=== PATIENT | male | born 1990 | race African-American/Black ===

== ENCOUNTER 2017-07-16 20:11 | Emergency (ER) | payer OTHER ==
[~2017-07-16] VITALS: Ht 170.2 cm; Wt 92.0 kg
[2017-07-16 22:04] LABS: INFLUENZA A VIRAL ANTIGEN NEGATIVE; INFLUENZA B VIRAL ANTIGEN NEGATIVE
[2017-07-16 22:34] LABS: HEMATOCRIT 48.9 % (38.0-50.0); MCH 28.4 PG (29.0-34.0); MCHC 34.2 G/DL (30.0-36.0); MCV 83.2 FL (86-99); MEAN PLAT.VOLUME 10.7 uM^3 (9.0-12.4); PLATELET COUNT 194 K/uL (156-360); RBC DIS.WIDTH-CV 14.7 % (11.8-14.6); RBC DIS.WIDTH-SD 44.2 % (39-53); RED BLOOD COUNT 5.88 M/uL (4.00-5.50); WHITE BLOOD COUNT 9.3 K/uL (4.1-10.2)
[2017-07-16 22:41] LABS: CHLORIDE 100 mEq/L (99-109); POTASSIUM 3.7 mEq/L (3.7-5.4); SODIUM 135 mEq/L (136-147)
[2017-07-16 22:44] LABS: GLUCOSE 99 mg/dL (70-99)
[2017-07-16 22:45] LABS: ANION GAP 10 MEQ/L (2-14)
[2017-07-16 22:46] LABS: TOTAL BILIRUBIN 0.8 mg/dL (0.0-1.0)
[2017-07-16 22:47] LABS: ALKALINE PHOSPHATASE 88 IU/L (3-129); GFR ESTIMATE (CALCULATED) > 59 mL/min/
[2017-07-16 22:48] LABS: UREA NITROGEN (BUN) 13 mg/dL (9-23)
[2017-07-16 23:39] VITALS: BP 127/70
== END 2017-07-16 23:40 | disposition home or self-care (01) ==
LOC: EME 20:11 → EXP 20:11
PROVIDERS: Physician Assistant
DX: J02.0 Streptococcal pharyngitis (principal); R50.9 Fever, unspecified; R59.0 Localized enlarged lymph nodes; J45.909 Unspecified asthma, uncomplicated; F17.200 Nicotine dependence, unspecified, uncomplicated
CPT/HCPCS: 71020; 76881; 80053; 85027; 87502; 87651 90; 99281; 99284; J0561; J1885

== ENCOUNTER 2018-03-31 23:14 | Emergency (ER) | payer OTHER ==
[~2018-03-31] VITALS: Ht 170.2 cm; Wt 90.9 kg
[2018-04-01] MEDS ORDERED: CLINDAMYCIN HC150 MG PO (02:05)
[2018-04-01 02:29] VITALS: BP 111/75
== END 2018-04-01 02:32 | disposition home or self-care (01) ==
LOC: EME 23:14
PROC: 0HQMXZZ Repair Right Foot Skin, External Approach (ICD-10-PCS; principal; 2018-03-31)
DX: S91.011A Laceration without foreign body, right ankle, initial encounter (principal); V86.56XA Driver of dirt bike or motor/cross bike injured in nontraffic accident, initial encounter; J45.909 Unspecified asthma, uncomplicated; F17.200 Nicotine dependence, unspecified, uncomplicated
CPT/HCPCS: 73610; 99281; 99284

== ENCOUNTER 2018-06-09 20:05 | Emergency (ER) | payer OTHER ==
[~2018-06-09] VITALS: Ht 170.2 cm; Wt 91.9 kg
[~2018-06-09 20:05] MED LIST: CLINDAMYCIN HC150 MG PO
[2018-06-09 21:21] LABS: HEMATOCRIT 44.2 % (38.0-50.0); HEMOGLOBIN 14.9 G/DL (12.5-16.6); MCH 28.7 PG (29.0-34.0); MCHC 33.7 G/DL (30.0-36.0); PLATELET COUNT 248 K/uL (156-360); RBC DIS.WIDTH-CV 14.3 % (11.8-14.6); WHITE BLOOD COUNT 11.4 K/uL (4.1-10.2)
[2018-06-09 21:32] LABS: CHLORIDE 103 mEq/L (99-109); POTASSIUM 3.6 mEq/L (3.7-5.4); SODIUM 140 mEq/L (136-147)
[2018-06-09 21:33] LABS: GLUCOSE 84 mg/dL (70-99)
[2018-06-09 21:37] LABS: GFR ESTIMATE (CALCULATED) > 59 mL/min/ (58.99-99999)
[2018-06-09 21:38] LABS: UREA NITROGEN (BUN) 14 mg/dL (9-23)
[2018-06-09] MEDS ORDERED: ZITHROMAX Z-PA250 MG PO (22:13)
[2018-06-09] MEDS ORDERED: MEDROL DOSEPAK4 MG PO (22:13)
[2018-06-09] MEDS ORDERED: VENTOLIN HFA18 GM IH (22:15)
[2018-06-09 22:53] VITALS: BP 126/71
== END 2018-06-09 23:00 | disposition home or self-care (01) ==
LOC: EME 20:05
DX: J18.9 Pneumonia, unspecified organism (principal); J45.909 Unspecified asthma, uncomplicated; F17.200 Nicotine dependence, unspecified, uncomplicated
CPT/HCPCS: 71046; 80048; 85027; 94640; 99281; 99284; J0696